=== PATIENT | male | born 1965 | race Caucasian/White ===

== ENCOUNTER 2021-06-27 01:29 | Observation (INO) ==
[2021-06-27] MEDS ORDERED: Ondansetron 4 MG/2 ML VIAL IVP PRN (03:59)
[2021-06-27] MEDS ORDERED: Naloxone 0.4 MG/ML INJ IVP PRN (03:59)
[2021-06-27] MEDS ORDERED: *HR* Heparin 5,000 UNIT/ML VIAL IVP ONE (04:05)
[2021-06-27] MEDS ORDERED: *HR* Heparin 5,000 UNIT/ML VIAL IVP PRN ×2 (04:05)
[2021-06-27] MEDS ORDERED: *HR* LORazepam 2 MG/ML VIAL IVP PRN ×3 (04:06)
[2021-06-27] MEDS ORDERED: Dextrose 4 GM Chewable Tablets PO PRN ×2 (04:08)
[2021-06-27] MEDS ORDERED: D5% in Water 1,000 ML IVC PRN (04:08)
[2021-06-27] MEDS ORDERED: *HR* Dextrose 50 % in Water (Syg) 50 ML SYRINGE IVP PRN (04:08)
[2021-06-27] MEDS ORDERED: Perflutren Lipid Microsphere 1.3 ML in 0.9 % Sodium Chloride 8.7 ML IVP PRN (05:01)
[2021-06-27] MEDS: DilTIAZem 50 MG/50 ML IV.SOLN IVC SCH ×2 (05:05→17:22)
[2021-06-27] MEDS: Heparin 25,000UNIT/250ML 1/2NS 25,000 UNIT/250 ML IV.SOLN IVC SCH (05:07)
[2021-06-27] MEDS ORDERED: Insulin LISPRO 300 UNITS/3 ML VIAL SUBQ SCH (06:00)
[2021-06-27 06:36] LABS: Basophils # 0.1 K/mcL (0.0-0.2); Basophils % 0.9 %; Eosinophils # 0.2 K/mcL (0.0-0.6); Eosinophils % 2.6 %; Hematocrit 42.9 % (37.5-50.1); Hemoglobin 14.7 g/dL (12.9-16.9); Immature Granulocytes % 0.5 % (0-4); Lymphocytes % 34.6 %; Mean Corpuscular HGB Conc 34.3 g/dL (31.6-35.5); Mean Corpuscular Hemoglobin 30.8 pg (28.0-33.3); Mean Corpuscular Volume 89.9 fL (83.0-100.0); Mean Platelet Volume 11.2 fL (9.4-12.4); Monocytes # 0.6 K/mcL (0.0-1.3); Monocytes % 10.1 %; Neutrophils # 2.9 K/mcL (1.6-8.9); Platelet Count 181 K/mcL (140-400); Red Blood Count 4.77 M/mcL (4.19-5.50); Red Cell Distribution Width 13.1 % (11.5-14.5); Segmented Neutrophils % 51.3 %; White Blood Count 5.7 K/mcL (4.3-11.1)
[2021-06-27 06:43] LABS: INR 1.3; Prothrombin Time 14.1 Seconds (9.4-12.1)
[2021-06-27 07:00] LABS: Ethanol < 10 mg/dL (Less than 10)
[2021-06-27 07:02] LABS: Alanine Aminotransferase 35 Units/L (7-52); Albumin 4.1 g/dL (3.5-5.7); Albumin/Globulin Ratio 1.6 (1.1-2.2); Alkaline Phosphatase 63 Units/L (34-104); Aspartate Amino Transferase 25 Units/L (13-39); BUN/Creatinine Ratio 15 (6-26); Bilirubin,Total 0.4 mg/dL (0.3-1.0); Blood Urea Nitrogen 14 mg/dL (6-20); Calcium 9.6 mg/dL (8.6-10.3); Carbon Dioxide 24 mEq/L (23-29); Chloride 106 mEq/L (98-107); Globulin 2.5 g/dL (2.4-3.5); Glucose 119 mg/dL (70-105); Magnesium 1.9 mg/dL (1.6-2.6); Osmolality,Calculated 292 (280-300); Phosphorous 3.3 mg/dL (2.7-4.5); Potassium 4.4 mEq/L (3.5-5.1); Sodium 140 mEq/L (136-145); Total Protein 6.6 g/dL (6.4-8.9); Troponin I < 0.03 ng/mL (< 0.04); eGFR For African Americans > 60 (> 60); eGFR For Non-African Americans > 60 (> 60)
[2021-06-27] MEDS: Folic Acid 1 MG in 0.9 % Sodium Chloride 50 ML IVPB SCH (08:58)
[2021-06-27] MEDS: Thiamine (B-1) 200 MG in 0.9 % Sodium Chloride 50 ML IVPB SCH (08:59)
[2021-06-27 09:19] LABS: Thyroid Stimulating Hormone 0.971 mcIU/mL (0.340-5.600)
[2021-06-27 09:35] LABS: Estimated Average Glucose 120 mg/dl; Hemoglobin A1C 5.8 %
[2021-06-27] MEDS: Insulin LISPRO 300 UNITS/3 ML VIAL SUBQ SCH ×3 (09:42→18:10)
[2021-06-28] MEDS: Heparin 25,000UNIT/250ML 1/2NS 25,000 UNIT/250 ML IV.SOLN IVC SCH ×2 (01:41→13:55)
[2021-06-28] MEDS: DilTIAZem 50 MG/50 ML IV.SOLN IVC SCH (03:30)
[2021-06-28] MEDS: Insulin LISPRO 300 UNITS/3 ML VIAL SUBQ SCH ×3 (08:23→16:41)
[2021-06-28] MEDS: lisinopriL 20 MG TABLET PO SCH (10:35)
[2021-06-28] MEDS: Thiamine (B-1) 100 MG TABLET PO SCH (10:35)
[2021-06-28] MEDS: Folic Acid 1 MG TABLET PO SCH (10:35)
[2021-06-28] MEDS: Folic Acid 1 MG in 0.9 % Sodium Chloride 50 ML IVPB SCH (14:19)
[2021-06-28] MEDS: Thiamine (B-1) 200 MG in 0.9 % Sodium Chloride 50 ML IVPB SCH (14:19)
[2021-06-28 16:12] VITALS: O2SAT 91
[2021-06-29] MEDS: lisinopriL 20 MG TABLET PO SCH (08:38)
[2021-06-29] MEDS: Thiamine (B-1) 100 MG TABLET PO SCH (08:38)
[2021-06-29] MEDS: Heparin 25,000UNIT/250ML 1/2NS 25,000 UNIT/250 ML IV.SOLN IVC SCH ×2 (08:39→11:30)
[2021-06-29] MEDS: Folic Acid 1 MG TABLET PO SCH (08:39)
[2021-06-29] MEDS: Insulin LISPRO 300 UNITS/3 ML VIAL SUBQ SCH (08:51)
[2021-06-29 15:17] VITALS: PULSE 73
[2021-06-29 15:18] VITALS: BP 112/74; TEMP 99.5
[2021-06-29 17:46] LABS: INR 1.1; Prothrombin Time 12.1 Seconds (9.4-12.1)
[2021-06-29] MEDS ORDERED: Warfarin perPT PO PRN (18:00)
[2021-06-29] MEDS ORDERED: *HR* Warfarin 5 MG TABLET PO ONE (18:00)
== END 2021-06-29 18:55 | disposition home or self-care (01) ==
LOC: 3NENU → SUATTDRO 03:32
PROVIDERS: ADMIT Internal Medicine; ATTEND Family Medicine